=== PATIENT | female | born 1955 ===

== ENCOUNTER 2021-02-09 08:52 | Outpatient (CLI) | payer OTHER | END 2021-02-09 08:54 | disposition home or self-care (01) | LOC: LAB 08:52 | PROVIDERS: ATTEND Surgery | DX: K64.2 Third degree hemorrhoids (principal); K62.89 Other specified diseases of anus and rectum; K62.5 Hemorrhage of anus and rectum ==

== ENCOUNTER 2021-07-03 06:42 | Day surgery (SDC) | payer OTHER ==
[~2021-07-03] VITALS: Ht 154.9 cm; Wt 44.0 kg
[~2021-07-03 06:42] MED LIST: B12 ACTIVE1000 MCG PO; D3 + K2 DOTS 11 EACH PO; PLAQUENIL PO; PROLIA60 MG/1 ML SUBCUTANEO; SENNA PLUS TAB1 EACH PO; VITAMIN C500 M6 PO
[2021-07-03] MEDS ORDERED: PERCOCET 5-3251 EACH PO (13:55)
== END 2021-07-03 21:30 | disposition home or self-care (01) ==
LOC: CIR.AMB 06:42
PROVIDERS: ATTEND Surgery
DX: K64.8 Other hemorrhoids (principal); Z20.822 Contact with and (suspected) exposure to COVID-19; Z87.891 Personal history of nicotine dependence; M35.00 Sjogren syndrome, unspecified; M81.0 Age-related osteoporosis without current pathological fracture; K21.9 Gastro-esophageal reflux disease without esophagitis; H93.19 Tinnitus, unspecified ear